=== PATIENT | female | born 2000 | race Caucasian/White ===

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

== ENCOUNTER 2021-09-20 06:48 | Inpatient (IN) | payer BC ==
[2021-09-20] MEDS ORDERED: Misoprostol 200 MCG Tab PO PRN (06:57)
[2021-09-20] MEDS ORDERED: Nalbuphine 10 MG/1 ML Vial IVPUSH PRN (06:57)
[2021-09-20] MEDS ORDERED: Sodium Chloride 0.9% 20 ML SDV IV PRN (06:57)
[2021-09-20] MEDS ORDERED: Sodium Chloride 0.9% 2.5 ML Syringe FLUSH PRN (06:57)
[2021-09-20] MEDS ORDERED: Carboprost Tromethamine 250 MCG/1 ML Amp IM PRN (06:57)
[2021-09-20] MEDS ORDERED: Methylergonovine 0.2 MG/1 ML Amp IM PRN ×2 (06:57→09:42)
[2021-09-20] MEDS ORDERED: Tranexamic Acid 1,000 MG in Sodium Chloride 0.9% 100 ML IV PRN (06:57)
[2021-09-20] MEDS ORDERED: Lidocaine 1% 50 ML MDV INJECT PRN (06:57)
[2021-09-20] MEDS ORDERED: Ondansetron 4 MG/2 ML SDV IVPUSH PRN ×4 (06:57→09:42)
[2021-09-20] MEDS ORDERED: Butorphanol 1 MG/ML SDV IVPUSH PRN (06:57)
[2021-09-20] MEDS ORDERED: Sodium Chloride 0.9% 10 ML Syringe FLUSH PRN (06:57)
[2021-09-20] MEDS ORDERED: Water For Irrigation,Sterile 1,000 ML Container IRR PRN (06:57)
[2021-09-20] MEDS: Lactated Ringers 1,000 ML IV SCH ×2 (06:57→08:25)
[2021-09-20] MEDS ORDERED: Oxytocin/0.9 % Sodium Chloride 30 UNIT/500 ML BAG IV SCH (07:00)
[2021-09-20] MEDS ORDERED: Terbutaline 1 MG/ML SDV SUBCUT ONE (07:30)
[2021-09-20] MEDS ORDERED: Ampicillin 2 GM in Sodium Chloride 0.9% 100 ML IV ONE (07:30)
[2021-09-20] MEDS ORDERED: Morphine 4 MG/ML VIAL IVPUSH PRN ×2 (07:34→09:17)
[2021-09-20] MEDS ORDERED: Metoclopramide 10 MG/2 ML SDV IVPUSH PRN ×2 (07:34→09:17)
[2021-09-20] MEDS ORDERED: Naloxone 0.4 MG/ML SDV IVPUSH PRN ×2 (07:34→09:17)
[2021-09-20] MEDS ORDERED: ePHEDrine 50 MG/ML SDV IVPUSH PRN (07:34)
[2021-09-20] MEDS ORDERED: HYDROmorphone 1 MG/ML Syringe IVPUSH PRN ×2 (07:34→09:17)
[2021-09-20] MEDS ORDERED: fentaNYL 100 MCG/2 ML SDV IVPUSH PRN ×2 (07:34→09:17)
[2021-09-20] MEDS ORDERED: Albuterol 0.083% 2.5 MG/3 ML Neb Soln NEB PRN ×2 (07:34→09:17)
--- NOTE | 2021-09-20 08:54 | PCM.LDHP ---
L&D History of Present Illness - General Date of Service: 09/20/21 Admit Problem/Dx: Patient Status Order with Admit Dx/Problem 09/20/21 06:58 Patient Status [ADT] Routine Admission Diagnosis/Problem Admission Diagnosis/Problem Source of Information: Patient ([id number]) History Limitations: Reports: No Limitations - History of Present Illness Introduction:: 20yo at 39w1d GA here for ECV and PLTCS if ECV unsuccessful. GBS positive, uncomplicated otherwise. - Related Data Allergies/Adverse Reactions: Allergies Allergy/AdvReac Type Severity Reaction Status Date / Time No Known Allergies Allergy Verified 09/20/21 07:52 Home Medications: Home Meds . 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: , Other (See Below) Other OB/BYN History: PCOS Neurological History: Reports: None Psychiatric History: Reports: Anxiety, Depression Endocrine/Metabolic History: Reports: Obesity/BMI 30+ Hematologic History: Reports: Anemia - Infectious Disease History Infectious Disease History: Reports: Novel Coronavirus - Past Surgical History HEENT Surgical History: Reports: Oral Surgery, Other (See Below) Other HEENT Surgeries/Procedures: [place] teeth removal GI Surgical History: Reports: None Endocrine Surgical History: Reports: None Social & Family History - Family History Family Medical History: No Pertinent Family History H&P Review of Systems - Review of Systems: Review Of Systems: See Below General: Reports: No Symptoms HEENT: Reports: No Symptoms Pulmonary: Reports: No Symptoms Cardiovascular: Reports: No Symptoms Gastrointestinal: Reports: No Symptoms Genitourinary: Reports: No Symptoms Musculoskeletal: Reports: No Symptoms Skin: Reports: No Symptoms Psychiatric: Reports: No Symptoms Neurological: Reports: No Symptoms L&D Exam - Exam Exam: See Below - Vital Signs Weight: 105.687 kg - Patient Data Lab Results Last 24 hrs: Laboratory Results - last 24 hr 09/20/21 09/20/21 09/20/21 Range/Units 07:10 07:10 07:16 WBC 7.87 (4.0-11.0) K/uL RBC 3.77 L (4.30-5.90) M/uL Hgb 11.4 L (12.0-16.0) g/dL Hct 32.3 L (36.0-46.0) % MCV 85.7 (80.0-98.0) fL MCH 30.2 (27.0-32.0) pg MCHC 35.3 (31.0-37.0) g/dL RDW Std Deviation 42.2 (28.0-62.0) fl RDW Coeff of Alfie 14 (11.0-15.0) % Plt Count 179 (150-400) K/uL MPV 9.90 (7.40-12.00) fL Nucleated RBC % 0.0 /100WBC Nucleated RBCs # 0 K/uL SARS-CoV-2 RNA (DIANE) NEGATIVE (NEGATIVE) Blood Type O POSITIVE Antibody Screen NEGATIVE Result Diagrams: 09/20/21 07:10 - Problem List (1) Term SNOMED Code(s): 16416762 ICD Code: Z34.90 - ENCNTR FOR SUPRVSN OF NORMAL , UNSP, UNSP TRIME STER Status: Acute Priority: High Current Visit: Yes (2) Breech presentation SNOMED Code(s): 9963091 ICD Code: O32.1XX0 - MATERNAL CARE FOR BREECH PRESENTATION, UNSP Status: Acute Priority: High Current Visit: Yes Problem List Initiated/Reviewed/Updated: Yes Orders Last 24hrs: Active Orders 24 hr Category Date Time Status Patient Status [ADT] Routine ADT 09/20/21 06:58 Active Blood Glucose Check, Bedside [RC] PRN Care 09/20/21 07:34 Active Heart Tones [RC] CONTINUOUS Care 09/20/21 06:58 Active Non Stress Test [RC] PER UNIT ROUTINE Care 09/20/21 06:58 Active May Shower [RC] ASDIRECTED Care 09/20/21 06:58 Active Notify Provider Vital Signs [RC] ASDIRECTED Care 09/20/21 07:34 Active Notify Provider [RC] PRN Care 09/20/21 06:58 Active Overnight Pulse Oximetry [RC] Click to Edit Care 09/20/21 07:34 Active Oxygen Therapy [RC] PRN Care 09/20/21 07:34 Active RT Aerosol Therapy [RC] ASDIRECTED Care 09/20/21 07:34 Active RT Aerosol Therapy [RC] ASDIRECTED Care 09/20/21 07:34 Active RT BiPAP/CPAP [RC] ASDIRECTED Care 09/20/21 07:34 Active Up ad Geovanna [RC] ASDIRECTED Care 09/20/21 06:58 Active Vaginal Exam [RC] PRN Care 09/20/21 06:58 Active Vital Signs [RC] PER UNIT ROUTINE Care 09/20/21 06:58 Active Vital Signs [RC] Q5M Care 09/20/21 07:34 Active OB Ltd 1 or More Fetus [US] Routine Exams 09/20/21 07:03 Ordered RPR (SYPHILIS SERO) W/ RFLX [REF] Routine Lab 09/20/21 07:10 Received Albuterol [Proventil Neb Soln] Med 09/20/21 07:34 Active 2.5 mg NEB ONETIME PRN Butorphanol [Stadol] Med 09/20/21 06:57 Active 1 mg IVPUSH Q1H PRN Carboprost Tromethamine [Hemabate DS] Med 09/20/21 06:57 Active 250 mcg IM ASDIRECTED PRN HYDROmorphone [Dilaudid] Med 09/20/21 07:34 Active 1 mg IVPUSH Q10M PRN Lactated Ringers [Ringers, Lactated] 1,000 ml Med 09/20/21 07:00 Active IV ASDIRECTED Lidocaine 1% [Xylocaine 1%] Med 09/20/21 06:57 Active 50 ml INJECT ONETIME PRN Methylergonovine [Methergine] Med 09/20/21 06:57 Active 0.2 mg IM ASDIRECTED PRN Metoclopramide [Reglan] Med 09/20/21 07:34 Active 10 mg IVPUSH ONETIME PRN Morphine Med 09/20/21 07:34 Active 2 mg IVPUSH Q10M PRN Nalbuphine [Nubain] Med 09/20/21 06:57 Active 10 mg IVPUSH Q1H PRN Naloxone [Narcan] Med 09/20/21 07:34 Active 0.1 mg IVPUSH ASDIRECTED PRN Ondansetron [Zofran] Med 09/20/21 07:34 Active 4 mg IVPUSH ONETIME PRN Ondansetron [Zofran] Med 09/20/21 06:57 Active 4 mg IVPUSH Q4H PRN Oxytocin/0.9 % Sodium Chloride [Oxytocin 30 Unit in NS Med 09/20/21 07:00 Active 0.9% 500 ML Premix] 30 unit in 500 ml IV TITRATE Sodium Chloride 0.9% [Normal Saline] Med 09/20/21 06:57 Active 10 ml IV ASDIRECTED PRN Sodium Chloride 0.9% [Saline Flush] Med 09/20/21 06:57 Active 10 ml FLUSH ASDIRECTED PRN Sodium Chloride 0.9% [Saline Flush] Med 09/20/21 06:57 Active 2.5 ml FLUSH ASDIRECTED PRN Tranexamic Acid [Cyklokapron] 1,000 mg Med 09/20/21 06:57 Active Sodium Chloride 0.9% [Normal Saline AdvBag] 100 ml IV ONETIME Water For Irrigation,Sterile [Sterile Water for Med 09/20/21 06:57 Active Irrigation] 1,000 ml IRR ASDIRECTED PRN droperidoL [Inapsine] Med 09/20/21 07:34 Active 0.625 mg IVPUSH ONETIME PRN ePHEDrine [ePHEDrine sulfate] Med 09/20/21 07:34 Active 10 mg IVPUSH Q5M PRN fentaNYL [Sublimaze] Med 09/20/21 07:34 Active 50 mcg IVPUSH Q5M PRN miSOPROStoL [Cytotec] Med 09/20/21 06:57 Active 200 mcg PO ONETIME PRN Scalp Electrode [WOMSER] Per Unit Routine Oth 09/20/21 06:58 Ordered Peripheral IV Insertion Adult [OM.PC] Routine Oth 09/20/21 06:58 Ordered Pulse Oximetry Continuous Monitoring [OM.PC] Routine Oth 09/20/21 07:34 Ordered Resuscitation Status Routine Resus Stat 09/20/21 06:57 Ordered Medication Orders Albuterol (Albuterol 0.083% 2.5 Mg/3 Ml Neb Soln) 2.5 mg NEB ONETIME PRN PRN Reason: Wheezing Butorphanol Tartrate (Butorphanol 1 Mg/Ml Sdv) 1 mg IVPUSH Q1H PRN PRN Reason: Pain (severe 7-10) Carboprost Tromethamine (Carboprost Tromethamine 250 Mcg/1 Ml Amp) 250 mcg IM ASDIRECTED PRN PRN Reason: Post Hemorrhage Droperidol (Droperidol 5 Mg/2 Ml Sdv) 0.625 mg IVPUSH ONETIME PRN PRN Reason: Nausea/Vomiting Ephedrine Sulfate (Ephedrine 50 Mg/Ml Sdv) 10 mg IVPUSH Q5M PRN PRN Reason: Hypotension Fentanyl (Fentanyl 100 Mcg/2 Ml Sdv) 50 mcg IVPUSH Q5M PRN PRN Reason: Pain (mild 1-3) Hydromorphone HCl (Hydromorphone 1 Mg/Ml Syringe) 1 mg IVPUSH Q10M PRN PRN Reason: Pain (moderate 4-6) Oxytocin/Sodium Chloride (Oxytocin 30 Unit In Ns 0.9% 500 Ml Premix) 30 unit in 500 mls @ 500 mls/hr IV TITRATE KARINE Tranexamic Acid 1,000 mg/ (Sodium Chloride) 110 mls @ 660 mls/hr IV ONETIME PRN PRN Reason: Bleeding Lactated Ringer's (Ringers, Lactated) 1,000 mls @ 150 mls/hr IV ASDIRECTED [facility] Admin: 09/20/21 08:25 Dose: 150 mls/hr Documented by: Infusion: 09/20/21 08:25 Dose: 150 mls/hr Documented by: Admin: 09/20/21 06:57 Dose: 150 mls/hr Documented by: JESSA Lidocaine HCl (Lidocaine 1% 50 Ml Mdv) 50 ml INJECT ONETIME PRN PRN Reason: Laceration repair Methylergonovine Maleate (Methylergonovine 0.2 Mg/1 Ml Amp) 0.2 mg IM ASDIRECTED PRN PRN Reason: Post Hemorrhage Metoclopramide HCl (Metoclopramide 10 Mg/2 Ml Sdv) 10 mg IVPUSH ONETIME PRN PRN Reason: Nausea/Vomiting Misoprostol (Misoprostol 200 Mcg Tab) 200 mcg PO ONETIME PRN PRN Reason: Post Hemorrhage Morphine Sulfate (Morphine 4 Mg/Ml Vial) 2 mg IVPUSH Q10M PRN PRN Reason: Pain (severe 7-10) Nalbuphine HCl (Nalbuphine 10 Mg/1 Ml Vial) 10 mg IVPUSH Q1H PRN PRN Reason: Pain (severe 7-10) Naloxone HCl (Naloxone 0.4 Mg/Ml Sdv) 0.1 mg IVPUSH ASDIRECTED PRN PRN Reason: Respiratory Depression Ondansetron HCl (Ondansetron 4 Mg/2 Ml Sdv) 4 mg IVPUSH Q4H PRN PRN Reason: Nausea/Vomiting Ondansetron HCl (Ondansetron 4 Mg/2 Ml Sdv) 4 mg IVPUSH ONETIME PRN PRN Reason: Nausea/Vomiting Sodium Chloride (Sodium Chloride 0.9% 10 Ml Syringe) 10 ml FLUSH ASDIRECTED PRN PRN Reason: Keep Vein Open Sodium Chloride (Sodium Chloride 0.9% 2.5 Ml Syringe) 2.5 ml FLUSH ASDIRECTED PRN PRN Reason: Keep Vein Open Sodium Chloride (Sodium Chloride 0.9% 20 Ml Sdv) 10 ml IV ASDIRECTED PRN PRN Reason: IV Use Sterile Water (Water For Irrigation,Sterile 1,000 Ml Container) 1,000 ml IRR ASDIRECTED PRN PRN Reason: delivery Assessment/Plan Comment:: 20yo at 39w1d GA admitted for PLTCS. ECV attempted and unsuccessful. Patient agreeable for . P: Orders placed. Consent signed.
[2021-09-20] MEDS ORDERED: Bupivacaine 0.5% 10 ML SDV ONE (08:55)
[2021-09-20] MEDS ORDERED: Oxytocin 10 Units/1 ML SDV ONE ×2 (08:56→08:57)
[2021-09-20] MEDS ORDERED: Morphine PF 10 MG/10 ML SDV ONE (08:56)
[2021-09-20] MEDS ORDERED: Ropivacaine 0.5% 5 MG/ML 30 ML SDV ONE (08:57)
[2021-09-20] MEDS ORDERED: Ondansetron 4 MG/2 ML SDV ONE ×2 (08:57)
[2021-09-20] MEDS ORDERED: fentaNYL 100 MCG/2 ML SDV ONE (09:05)
--- NOTE | 2021-09-20 09:13 | PCM.PREANE ---
Preanesthetic Assessment - Anesthesia/Transfusion/Family Hx Anesthesia History: Prior Anesthesia Without Reaction - Review of Systems General: No Symptoms Pulmonary: No Symptoms Cardiovascular: No Symptoms Gastrointestinal: No Symptoms Neurological: No Symptoms Other: Reports: None - Physical Assessment NPO Status Date: 09/20/21 NPO Status Time: 00:00 Height: 5 ft 4 in Weight: 233 lb ASA Class: 2 Mental Status: Alert & Oriented x3 Airway Class: Mallampati = 2 Dentition: Reports: Normal Dentition Thyro-Mental Finger Breadths: 3 Mouth Opening Finger Breadths: 3 ROM/Head Extension: Full Lungs: Clear to Auscultation, Normal Respiratory Effort Cardiovascular: Regular Rate, Regular Rhythm - Lab Values: Laboratory Last Values WBC 7.87 K/uL (4.0-11.0) 09/20/21 07:10 RBC 3.77 M/uL (4.30-5.90) L 09/20/21 07:10 Hgb 11.4 g/dL (12.0-16.0) L 09/20/21 07:10 Hct 32.3 % (36.0-46.0) L 09/20/21 07:10 MCV 85.7 fL (80.0-98.0) 09/20/21 07:10 MCH 30.2 pg (27.0-32.0) 09/20/21 07:10 MCHC 35.3 g/dL (31.0-37.0) 09/20/21 07:10 RDW Std Deviation 42.2 fl (28.0-62.0) 09/20/21 07:10 RDW Coeff of Alfie 14 % (11.0-15.0) 09/20/21 07:10 Plt Count 179 K/uL (150-400) 09/20/21 07:10 MPV 9.90 fL (7.40-12.00) 09/20/21 07:10 Nucleated RBC % 0.0 /100WBC 09/20/21 07:10 Nucleated RBCs # 0 K/uL 09/20/21 07:10 SARS-CoV-2 RNA (DIANE) NEGATIVE (NEGATIVE) 09/20/21 07:16 Blood Type O POSITIVE 09/20/21 07:10 Antibody Screen NEGATIVE 09/20/21 07:10 - Allergies Allergies/Adverse Reactions: Allergies Allergy/AdvReac Type Severity Reaction Status Date / Time No Known Allergies Allergy Verified 09/20/21 07:52 - Acknowledgements Anesthesia Type Planned: Epidural Pt an Appropriate Candidate for the Planned Anesthesia: Yes Alternatives and Risks of Anesthesia Discussed w Pt/Guardian: Yes Pt/Guardian Understands and Agrees with Anesthesia Plan: Yes PreAnesthesia Questionnaire Gastrointestinal History: Reports: GERD 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 [No Known Home Meds] 09/15/21 [History] - CURRENT (IN HOUSE) MEDS Current Meds: Current Medications Albuterol (Albuterol 0.083% 2.5 Mg/3 Ml Neb Soln) 2.5 mg NEB ONETIME PRN PRN Reason: Wheezing Butorphanol Tartrate (Butorphanol 1 Mg/Ml Sdv) 1 mg IVPUSH Q1H PRN PRN Reason: Pain (severe 7-10) Carboprost Tromethamine (Carboprost Tromethamine 250 Mcg/1 Ml Amp) 250 mcg IM ASDIRECTED PRN PRN Reason: Post Hemorrhage Droperidol (Droperidol 5 Mg/2 Ml Sdv) 0.625 mg IVPUSH ONETIME PRN PRN Reason: Nausea/Vomiting Ephedrine Sulfate (Ephedrine 50 Mg/Ml Sdv) 10 mg IVPUSH Q5M PRN PRN Reason: Hypotension Fentanyl (Fentanyl 100 Mcg/2 Ml Sdv) 50 mcg IVPUSH Q5M PRN PRN Reason: Pain (mild 1-3) Hydromorphone HCl (Hydromorphone 1 Mg/Ml Syringe) 1 mg IVPUSH Q10M PRN PRN Reason: Pain (moderate 4-6) Oxytocin/Sodium Chloride (Oxytocin 30 Unit In Ns 0.9% 500 Ml Premix) 30 unit in 500 mls @ 500 mls/hr IV TITRATE KARINE Tranexamic Acid 1,000 mg/ (Sodium Chloride) 110 mls @ 660 mls/hr IV ONETIME PRN PRN Reason: Bleeding Lactated Ringer's (Ringers, Lactated) 1,000 mls @ 150 mls/hr IV ASDIRECTED [facility] Last Admin: 09/20/21 08:25 Dose: 150 mls/hr Documented by: Lidocaine HCl (Lidocaine 1% 50 Ml Mdv) 50 ml INJECT ONETIME PRN PRN Reason: Laceration repair Methylergonovine Maleate (Methylergonovine 0.2 Mg/1 Ml Amp) 0.2 mg IM ASDIRECTED PRN PRN Reason: Post Hemorrhage Metoclopramide HCl (Metoclopramide 10 Mg/2 Ml Sdv) 10 mg IVPUSH ONETIME PRN PRN Reason: Nausea/Vomiting Misoprostol (Misoprostol 200 Mcg Tab) 200 mcg PO ONETIME PRN PRN Reason: Post Hemorrhage Morphine Sulfate (Morphine 4 Mg/Ml Vial) 2 mg IVPUSH Q10M PRN PRN Reason: Pain (severe 7-10) Nalbuphine HCl (Nalbuphine 10 Mg/1 Ml Vial) 10 mg IVPUSH Q1H PRN PRN Reason: Pain (severe 7-10) Naloxone HCl (Naloxone 0.4 Mg/Ml Sdv) 0.1 mg IVPUSH ASDIRECTED PRN PRN Reason: Respiratory Depression Ondansetron HCl (Ondansetron 4 Mg/2 Ml Sdv) 4 mg IVPUSH Q4H PRN PRN Reason: Nausea/Vomiting Ondansetron HCl (Ondansetron 4 Mg/2 Ml Sdv) 4 mg IVPUSH ONETIME PRN PRN Reason: Nausea/Vomiting Sodium Chloride (Sodium Chloride 0.9% 10 Ml Syringe) 10 ml FLUSH ASDIRECTED PRN PRN Reason: Keep Vein Open Sodium Chloride (Sodium Chloride 0.9% 2.5 Ml Syringe) 2.5 ml FLUSH ASDIRECTED PRN PRN Reason: Keep Vein Open Sodium Chloride (Sodium Chloride 0.9% 20 Ml Sdv) 10 ml IV ASDIRECTED PRN PRN Reason: IV Use Sterile Water (Water For Irrigation,Sterile 1,000 Ml Container) 1,000 ml IRR ASDIRECTED PRN PRN Reason: delivery Discontinued Medications Bupivacaine HCl (Bupivacaine 0.5% 10 Ml Sdv) Confirm Administered Dose 10 ml .ROUTE .STK-MED ONE Stop: 09/20/21 08:56 Fentanyl (Fentanyl 100 Mcg/2 Ml Sdv) Confirm Administered Dose 100 mcg .ROUTE .STK-MED ONE Stop: 09/20/21 09:06 Ampicillin Sodium 2 gm/ Sodium (Chloride) 100 mls @ 200 mls/hr IV ONETIME ONE Stop: 09/20/21 07:59 Last Admin: 09/20/21 07:27 Dose: 200 mls/hr Documented by: Miscellaneous Medication (Phenylephrine Hcl In 0.9% Nacl 1 Mg/10 Ml Syringe) Confirm Administered Dose 1 mg .ROUTE .STK-MED ONE Stop: 09/20/21 08:21 Miscellaneous Medication (Phenylephrine Hcl In 0.9% Nacl 1 Mg/10 Ml Syringe) Confirm Administered Dose 1 mg .ROUTE .STK-MED ONE Stop: 09/20/21 08:58 Morphine Sulfate (Morphine Pf 10 Mg/10 Ml Sdv) Confirm Administered Dose 10 mg .ROUTE .STK-MED ONE Stop: 09/20/21 08:57 Ondansetron HCl (Ondansetron 4 Mg/2 Ml Sdv) Confirm Administered Dose 4 mg .ROUTE .STK-MED ONE Stop: 09/20/21 08:58 Ondansetron HCl (Ondansetron 4 Mg/2 Ml Sdv) Confirm Administered Dose 4 mg .ROUTE .STK-MED ONE Stop: 09/20/21 08:58 Oxytocin (Oxytocin 10 Units/1 Ml Sdv) Confirm Administered Dose 10 unit .ROUTE .STK-MED ONE Stop: 09/20/21 08:57 Oxytocin (Oxytocin 10 Units/1 Ml Sdv) Confirm Administered Dose 30 unit .ROUTE .STK-MED ONE Stop: 09/20/21 08:58 Ropivacaine (Ropivacaine 0.5% 5 Mg/Ml 30 Ml Sdv) Confirm Administered Dose 30 ml .ROUTE .STK-MED ONE Stop: 09/20/21 08:58 Terbutaline Sulfate (Terbutaline 1 Mg/Ml Sdv) 0.25 mg SUBCUT ONETIME ONE Stop: 09/20/21 07:31 Last Admin: 09/20/21 07:46 Dose: 0.25 mg Documented by:
--- NOTE | 2021-09-20 09:14 | PCM.POSTAN ---
POST ANESTHESIA ASSESSMENT - MENTAL STATUS Mental Status: Alert, Oriented - RESPIRATORY Respiratory Status: Respiratory Rate WNL, Airway Patent, O2 Saturation Stable - CARDIOVASCULAR CV Status: Pulse Rate WNL, Blood Pressure Stable - GASTROINTESTINAL GI Status: No Symptoms - POST OP HYDRATION Hydration Status: Adequate & Stable
--- NOTE | 2021-09-20 09:16 | PCM.SN.2 ---
- Pre-Procedure Checklist Attending Provider Aware: Yes Chart Reviewed: Yes Consent Signed: Yes Labs Reviewed: Yes VS/FHR Reviewed: Yes Patient Identification Confirmation Method: Reports: ID Band Visual, Verbal Patient Pt an Appropriate Candidate for the Planned Anesthesia: Yes Alternatives and Risks of Anesthesia Discussed w Pt/Guardian: Yes - Procedure Procedure Start Date: 09/20/21 Procedure Start Time: 08:[address]: Reports: Blood Pressure, Heart Rate, SPO2 Functional IV: Yes Safety Measures: Reports: Patient Identified, Procedure Verified, Site Verified, Procedure Time Out Patient Position: Reports: Sitting Prep: Reports: Alcohol x3, Betadine x3 Local Anesthetic: Reports: Intradermal Wheal w Lidocaine 1% Regional Placement Level: Reports: L4-5 Needle: Reports: 17 g Touhy Approach: Reports: Midline Technique: Reports: MELVIN Glass Syringe Parasthesia: Reports: None Fluid Obtained: Reports: None Test Dose Medication: Reports: Lidocaine 1.5% w Epinephrine 1:200,000 Test Dose Response: Reports: Negative Loading Dose Time: 08:20 Loading Dose Medication: 10cc 0.5% Bupivicaine Loading Dose Patient Position: LESA Patient Position Post Placement: Reports: Supline/LESA Level Achieved: T-7 VS and FHR Monitored in Unit Post Placement: Yes Procedure End Date: 09/20/21 Procedure End Time: 08:25
[2021-09-20] MEDS ORDERED: Tranexamic Acid 1,000 MG in Sodium Chloride 0.9% 500 ML IV PRN (09:42)
[2021-09-20] MEDS ORDERED: Misoprostol 200 MCG Tab RECTAL PRN (09:42)
[2021-09-20] MEDS ORDERED: Bisacodyl 10 MG Supp RECTAL PRN (09:42)
[2021-09-20] MEDS ORDERED: Acetaminophen/oxyCODONE 325-5 MG Tab PO PRN (09:42)
[2021-09-20] MEDS ORDERED: Oxytocin 10 Units/1 ML SDV IM PRN (09:42)
[2021-09-20] MEDS ORDERED: diphenhydrAMINE 50 MG/ML SDV IVPUSH PRN (09:42)
[2021-09-20] MEDS ORDERED: Lidocaine 2% 100 MG/5 ML Syringe ONE (09:42)
[2021-09-20] MEDS ORDERED: Lanolin 100% Cream 7 GM Tube TOP PRN (09:42)
[2021-09-20] MEDS ORDERED: Oxytocin/Lactated Ringers 30 UNIT/500 ML BAG IV SCH (09:45)
[2021-09-20] MEDS ORDERED: Lactated Ringers 1,000 ML IV SCH (09:45)
--- NOTE | 2021-09-20 09:46 | US ---
Indication: Numbness sonography to assess fluid volumes and presentation. Technique: Sonography of the gravid uterus was performed but limited to the factors and structures discussed below Comparison: Limited portions of in August 14, 2021 exam Findings: There is a single living intrauterine that is currently breech. The placenta is left lateral. There is no previa. The VINICIO is 11.7 centimeters which is normal. The single deepest pocket is 4.18 centimeters. heart rate is 129 beats per minute which is normal. According to the eeg technician notes, external version was attempted and the final pictures still show the presentation to be breech. Impression: 1. Single living intrauterine that is breach. Normal fluid ones. No placenta previa. Normal heart rate. 2. By report, external version was attempted. The final images show the fetus to still be in breech position Dictated by Von Berry MD @ 09/20/2021 9:44:53 AM (Electronically Signed)
[2021-09-20] MEDS: Ketorolac 30 MG/ML SDV IVPUSH SCH ×3 (10:07→22:22)
--- NOTE | 2021-09-20 10:15 | PCM.SN.2 ---
- Free Text/Narrative Note: Anesthesia Start: 957 Anesthesia Stop: 1003 Following c/s a block time out was performed. Using US guidance and a 20g echogenic 6 inch stimuplex needle, 15 cc of 0.5% Naropin was injected per side in 5cc increments. Patient tolerated the procedure well. No complications. Travis Mas MD
--- NOTE | 2021-09-20 13:30 | PCM48HPAN ---
Post Anesthesia Note - EVALUATION WITHIN 48HRS OF ANESTHETIC Vital Signs in Normal Range: Yes Patient Participated in Evaluation: Yes Respiratory Function Stable: Yes Airway Patent: Yes Cardiovascular Function Stable: Yes Hydration Status Stable: Yes Pain Control Satisfactory: Yes Nausea and Vomiting Control Satisfactory: Yes Mental Status Recovered: Yes
--- NOTE | 2021-09-20 19:00 | OR ---
SURGEON: Dacia Yanes MD DATE OF PROCEDURE: 09/20/2021 INDICATION FOR SURGERY: Term , breech presentation. PREOPERATIVE DIAGNOSES: Term , breech presentation. POSTOPERATIVE DIAGNOSES: Term , breech presentation, live . OPERATION: Primary low-transverse . PRIMARY SURGEON: Mahsa, Dacia Yanes MD and Panfilo Gutiérrez MD. SCIENTIFIC PUBLICATIONS EDITOR: None. ANESTHESIA: Spinal. ANESTHESIOLOGIST: Travis Mas. INTRAOPERATIVE FLUID REPLACEMENT: 1200 mL. ESTIMATED BLOOD LOSS: 400 mL. URINE OUTPUT: 150 mL. DRAIN AND PACK: Javier catheter draining clear urine. SPECIMEN: None. DELIVERY DETAILS: Live , female, weight 6 pounds 9 ounces. PLACENTA DELIVERY METHOD: Spontaneous. MATERNAL DELIVERY COMPLICATIONS: None. COMPLICATIONS: None. TECHNIQUE: The patient was first admitted for ECV. ECV attempted under epidural anesthesia, but unsuccessful. The patient was consented for a primary low- transverse . The patient was then taken to the operating room. She was transferred to the operating table and placed in a dorsal supine position with a leftward tilt. After adequate anesthesia was confirmed, she was prepped and draped in the usual sterile fashion. A time-out was completed. With IV fluid running and Javier catheter draining, a Pfannenstiel skin incision was made. The incision was carried down with the Bovie cautery through the subcutaneous tissue to the underlying rectus fascia and the fascia was incised in the midline and extended laterally. The underlying rectus muscle was dissected off and then in the midline and parietal peritoneum was opened. A self-retaining retractor was placed and the lower uterine segment was identified. A bladder flap was made and the lower uterine segment was incised in a transverse fashion. The incision was extended laterally with cephalocaudal traction. The infant's buttock was delivered followed by the reminder of the . The head was delivered last. The cord was clamped and cut and infant was then handed off to the pediatric staff. Blood was collected for possible cord gases. The placenta was delivered spontaneously. The uterus was then cleared of all clots and debris and the incision was reapproximated in a running locked stitch fashion utilizing 0 Vicryl. A second running stitch imbricating the first layer was performed with the same 0 Vicryl. Hemostasis was excellent. The self-retaining retractor was removed and the peritoneum was closed with a running stitch fashion utilizing 3-0 Vicryl. The rectus fascia was reapproximated with a PDS in a running stitch fashion. Hemostasis was also assured. The skin was then closed with a 4-0 Monocryl in a subcuticular fashion. All sponges, needles, and instrument counts were correct per the OR nursing staff. The patient was taken to recovery room in a stable condition. Prior to this surgery, patient had received 2 g of ampicillin. ASCENCION RILEY /[id number]
[2021-09-20] MEDS: Docusate Sodium 100 MG Cap PO SCH (21:37)
[2021-09-21] MEDS: Ketorolac 30 MG/ML SDV IVPUSH SCH ×2 (04:27→10:10)
[2021-09-21] MEDS: Docusate Sodium 100 MG Cap PO SCH ×2 (10:10→21:35)
[2021-09-21] MEDS ORDERED: Ibuprofen 800 MG Tab PO PRN (16:00)
--- NOTE | 2021-09-21 17:32 | PCM.PNPP ---
- General Info Date of Service: 09/21/21 Subjective Update: Mom and baby are doing well. Patient reports light vaginal bleeding. She has tolerated PO intake without nausea or vomiting. She has passed gas. Javier is out and she is voiding without issues. SHe is ambulating with dizziness/lightheadedness. Functional Status: Reports: Pain Controlled - Review of Systems General: Reports: No Symptoms HEENT: Reports: No Symptoms Pulmonary: Reports: No Symptoms Cardiovascular: Reports: No Symptoms Gastrointestinal: Reports: No Symptoms Genitourinary: Reports: No Symptoms Musculoskeletal: Reports: No Symptoms Skin: Reports: No Symptoms Neurological: Reports: No Symptoms Psychiatric: Reports: No Symptoms - General Info Date of Service: 09/21/21 - Patient Data Vital Signs - Most Recent: Last Vital Signs Temp 97.5 F 09/21/21 16:10 Pulse 84 09/21/21 16:10 Resp 17 09/21/21 16:10 BP 120/57 L 09/21/21 16:10 Pulse Ox 94 L 09/21/21 16:10 Weight - Most Recent: 105.687 kg I&O - Last 24 Hours: Intake & Output 09/21/21 09/21/21 09/21/21 06:59 14:59 22:59 Output Total 1999 Balance -1999 Lab Results - Last 24 Hours: Laboratory Results - last 24 hr 09/20/21 09/21/21 Range/Units 07:10 06:18 Hgb 10.5 L (12.0-16.0) g/dL Hct 29.9 L (36.0-46.0) % RPR Non-Reac (Non-Reac) Med Orders - Current: Current Medications Albuterol (Albuterol 0.083% 2.5 Mg/3 Ml Neb Soln) 2.5 mg NEB ONETIME PRN PRN Reason: Wheezing Albuterol (Albuterol 0.083% 2.5 Mg/3 Ml Neb Soln) 2.5 mg NEB ONETIME PRN PRN Reason: Wheezing Bisacodyl (Bisacodyl 10 Mg Supp) 10 mg RECTAL ONETIME PRN PRN Reason: Constipation Butorphanol Tartrate (Butorphanol 1 Mg/Ml Sdv) 1 mg IVPUSH Q1H PRN PRN Reason: Pain (severe 7-10) Carboprost Tromethamine (Carboprost Tromethamine 250 Mcg/1 Ml Amp) 250 mcg IM ASDIRECTED PRN PRN Reason: Post Hemorrhage Diphenhydramine HCl (Diphenhydramine 50 Mg/Ml Sdv) 25 mg IVPUSH Q6H PRN PRN Reason: Itching or Nausea Docusate Sodium (Docusate Sodium 100 Mg Cap) 100 mg PO BID [facility] Last Admin: 09/21/21 10:10 Dose: 100 mg Documented by: Droperidol (Droperidol 5 Mg/2 Ml Sdv) 0.625 mg IVPUSH ONETIME PRN PRN Reason: Nausea/Vomiting Droperidol (Droperidol 5 Mg/2 Ml Sdv) 0.625 mg IVPUSH ONETIME PRN PRN Reason: Nausea/Vomiting Emollient Ointment (Lanolin 100% Cream 7 Gm Tube) 0 gm TOP ASDIRECTED PRN PRN Reason: Sore Nipples Last Admin: 09/20/21 16:28 Dose: 1 tube Documented by: Ephedrine Sulfate (Ephedrine 50 Mg/Ml Sdv) 10 mg IVPUSH Q5M PRN PRN Reason: Hypotension Fentanyl (Fentanyl 100 Mcg/2 Ml Sdv) 50 mcg IVPUSH Q5M PRN PRN Reason: Pain (mild 1-3) Fentanyl (Fentanyl 100 Mcg/2 Ml Sdv) 50 mcg IVPUSH Q5M PRN PRN Reason: Pain (mild 1-3) Hydromorphone HCl (Hydromorphone 1 Mg/Ml Syringe) 1 mg IVPUSH Q10M PRN PRN Reason: Pain (moderate 4-6) Hydromorphone HCl (Hydromorphone 1 Mg/Ml Syringe) 1 mg IVPUSH Q10M PRN PRN Reason: Pain (moderate 4-6) Oxytocin/Sodium Chloride (Oxytocin 30 Unit In Ns 0.9% 500 Ml Premix) 30 unit in 500 mls @ 500 mls/hr IV TITRATE [facility] Tranexamic Acid 1,000 mg/ (Sodium Chloride) 110 mls @ 660 mls/hr IV ONETIME PRN PRN Reason: Bleeding Lactated Ringer's (Ringers, Lactated) 1,000 mls @ 150 mls/hr IV ASDIRECTED [facility] Last Admin: 09/20/21 08:25 Dose: 150 mls/hr Documented by: Lactated Ringer's (Ringers, Lactated) 1,000 mls @ 125 mls/hr IV ASDIRECTED [facility] Last Admin: 09/20/21 13:12 Dose: 125 mls/hr Documented by: Oxytocin/Lactated Ringer's (Pitocin In Lr 30 Units/500 Ml) 30 unit in 500 mls @ 2 mls/hr IV TITRATE [facility]; Protocol Tranexamic Acid 1,000 mg/ (Sodium Chloride) 510 mls @ 3,060 mls/hr IV ONETIME PRN PRN Reason: Bleeding Ibuprofen (Ibuprofen 800 Mg Tab) 800 mg PO Q8H PRN PRN Reason: Cramping Lidocaine HCl (Lidocaine 1% 50 Ml Mdv) 50 ml INJECT ONETIME PRN PRN Reason: Laceration repair Methylergonovine Maleate (Methylergonovine 0.2 Mg/1 Ml Amp) 0.2 mg IM ASDIRECTED PRN PRN Reason: Post Hemorrhage Methylergonovine Maleate (Methylergonovine 0.2 Mg/1 Ml Amp) 0.2 mg IM ONETIME PRN PRN Reason: Excessive Vaginal Bleeding Metoclopramide HCl (Metoclopramide 10 Mg/2 Ml Sdv) 10 mg IVPUSH ONETIME PRN PRN Reason: Nausea/Vomiting Metoclopramide HCl (Metoclopramide 10 Mg/2 Ml Sdv) 10 mg IVPUSH ONETIME PRN PRN Reason: Nausea/Vomiting Misoprostol (Misoprostol 200 Mcg Tab) 200 mcg PO ONETIME PRN PRN Reason: Post Hemorrhage Misoprostol (Misoprostol 200 Mcg Tab) 1,000 mcg RECTAL ONETIME PRN PRN Reason: excessive bleeding Morphine Sulfate (Morphine 4 Mg/Ml Vial) 2 mg IVPUSH Q10M PRN PRN Reason: Pain (severe 7-10) Morphine Sulfate (Morphine 4 Mg/Ml Vial) 2 mg IVPUSH Q10M PRN PRN Reason: Pain (severe 7-10) Nalbuphine HCl (Nalbuphine 10 Mg/1 Ml Vial) 10 mg IVPUSH Q1H PRN PRN Reason: Pain (severe 7-10) Naloxone HCl (Naloxone 0.4 Mg/Ml Sdv) 0.1 mg IVPUSH ASDIRECTED PRN PRN Reason: Respiratory Depression Naloxone HCl (Naloxone 0.4 Mg/Ml Sdv) 0.1 mg IVPUSH ASDIRECTED PRN PRN Reason: Respiratory Depression Ondansetron HCl (Ondansetron 4 Mg/2 Ml Sdv) 4 mg IVPUSH Q4H PRN PRN Reason: Nausea/Vomiting Last Admin: 09/20/21 16:28 Dose: 4 mg Documented by: Ondansetron HCl (Ondansetron 4 Mg/2 Ml Sdv) 4 mg IVPUSH ONETIME PRN PRN Reason: Nausea/Vomiting Ondansetron HCl (Ondansetron 4 Mg/2 Ml Sdv) 4 mg IVPUSH ONETIME PRN PRN Reason: Nausea/Vomiting Ondansetron HCl (Ondansetron 4 Mg/2 Ml Sdv) 4 mg IVPUSH Q4H PRN PRN Reason: Nausea/Vomiting Oxycodone/Acetaminophen (Acetaminophen/Oxycodone 325-5 Mg Tab) 1 tab PO Q4H PRN PRN Reason: Pain (severe 7-10) Oxycodone/Acetaminophen (Acetaminophen/Oxycodone 325-5 Mg Tab) 2 tab PO Q4H PRN PRN Reason: Pain (severe 7-10) Oxytocin (Oxytocin 10 Units/1 Ml Sdv) 10 unit IM ASDIRECTED PRN PRN Reason: Excessive Vaginal Bleeding Sodium Chloride (Sodium Chloride 0.9% 10 Ml Syringe) 10 ml FLUSH ASDIRECTED PRN PRN Reason: Keep Vein Open Sodium Chloride (Sodium Chloride 0.9% 2.5 Ml Syringe) 2.5 ml FLUSH ASDIRECTED PRN PRN Reason: Keep Vein Open Sodium Chloride (Sodium Chloride 0.9% 20 Ml Sdv) 10 ml IV ASDIRECTED PRN PRN Reason: IV Use Sterile Water (Water For Irrigation,Sterile 1,000 Ml Container) 1,000 ml IRR ASDIRECTED PRN PRN Reason: delivery Discontinued Medications Bupivacaine HCl (Bupivacaine 0.5% 10 Ml Sdv) Confirm Administered Dose 10 ml .ROUTE .STK-MED ONE Stop: 09/20/21 08:56 Droperidol (Droperidol 5 Mg/2 Ml Sdv) Confirm Administered Dose 5 mg .ROUTE .STK-MED ONE Stop: 09/20/21 09:41 Fentanyl (Fentanyl 100 Mcg/2 Ml Sdv) Confirm Administered Dose 100 mcg .ROUTE .STK-MED ONE Stop: 09/20/21 09:06 Ampicillin Sodium 2 gm/ Sodium (Chloride) 100 mls @ 200 mls/hr IV ONETIME ONE Stop: 09/20/21 07:59 Last Admin: 09/20/21 07:27 Dose: 200 mls/hr Documented by: Ketorolac Tromethamine (Ketorolac 30 Mg/Ml Sdv) 30 mg IVPUSH Q6H [facility] Stop: 09/21/21 09:46 Last Admin: 09/21/21 10:10 Dose: 30 mg Documented by: Lidocaine HCl (Lidocaine 2% 100 Mg/5 Ml Syringe) Confirm Administered Dose 100 mg .ROUTE .STK-MED ONE Stop: 09/20/21 09:43 Miscellaneous Medication (Phenylephrine Hcl In 0.9% Nacl 1 Mg/10 Ml Syringe) Confirm Administered Dose 1 mg .ROUTE .STK-MED ONE Stop: 09/20/21 08:21 Miscellaneous Medication (Phenylephrine Hcl In 0.9% Nacl 1 Mg/10 Ml Syringe) Confirm Administered Dose 1 mg .ROUTE .STK-MED ONE Stop: 09/20/21 08:58 Morphine Sulfate (Morphine Pf 10 Mg/10 Ml Sdv) Confirm Administered Dose 10 mg .ROUTE .STK-MED ONE Stop: 09/20/21 08:57 Ondansetron HCl (Ondansetron 4 Mg/2 Ml Sdv) Confirm Administered Dose 4 mg .ROUTE .STK-MED ONE Stop: 09/20/21 08:58 Ondansetron HCl (Ondansetron 4 Mg/2 Ml Sdv) Confirm Administered Dose 4 mg .ROUTE .STK-MED ONE Stop: 09/20/21 08:58 Oxytocin (Oxytocin 10 Units/1 Ml Sdv) Confirm Administered Dose 10 unit .ROUTE .STK-MED ONE Stop: 09/20/21 08:57 Oxytocin (Oxytocin 10 Units/1 Ml Sdv) Confirm Administered Dose 30 unit .ROUTE .STK-MED ONE Stop: 09/20/21 08:58 Ropivacaine (Ropivacaine 0.5% 5 Mg/Ml 30 Ml Sdv) Confirm Administered Dose 30 ml .ROUTE .STK-MED ONE Stop: 09/20/21 08:58 Terbutaline Sulfate (Terbutaline 1 Mg/Ml Sdv) 0.25 mg SUBCUT ONETIME ONE Stop: 09/20/21 07:31 Last Admin: 09/20/21 07:46 Dose: 0.25 mg Documented by: - Infant Interaction Disposition, : in Room with Family Support Person: - Recovery Exam Fundal Tone: Firm Fundal Level: 2 Fingerbreadths Below Umbilicus Fundal Placement: Midline Lochia Amount: Scant Lochia Color: Rubra/Red Perineum Description: Intact, Minimal Bruising/Swelling Episiotomy/Laceration: None Bladder Status: Voiding Urinary Elimination: Voided Other Urinary Elimination, : due to void - Exam General: Alert, Oriented Lungs: Normal Respiratory Effort GI/Abdominal Exam: Soft, Non-Tender Psy/Mental Status: Normal Affect, Normal Mood - Problem List & Annotations (1) Term SNOMED Code(s): 30184423 Code(s): Z34.90 - ENCNTR FOR SUPRVSN OF NORMAL , UNSP, UNSP TRIMESTER Status: Acute Priority: High Current Visit: Yes (2) Breech presentation SNOMED Code(s): 2512613 Code(s): O32.1XX0 - MATERNAL CARE FOR BREECH PRESENTATION, UNSP Status: Acute Priority: High Current Visit: Yes - Problem List Review Problem List Initiated/Reviewed/Updated: Yes - My Orders Last 24 Hours: My Active Orders 09/20/21 21:00 Docusate Sodium [Colace] 100 mg PO BID 09/21/21 16:00 Ibuprofen [Motrin] 800 mg PO Q8H PRN - Plan Plan:: 20yo G1 now P1 s/p PLTCS at 39w1d GA, for breech presentation, after unsuccessful attempt at ECV P: Routine care
[2021-09-21] MEDS: Acetaminophen/oxyCODONE 325-5 MG Tab PO PRN ×2 (18:52→21:35)
--- NOTE | 2021-09-22 08:07 | PCM.PNPP ---
- General Info Date of Service: 09/22/21 Subjective Update: Patient doing well. Ambulating and voiding without difficulty. Functional Status: Reports: Pain Controlled, Tolerating Diet, Ambulating, Urinating - Review of Systems General: Reports: No Symptoms HEENT: Reports: No Symptoms Pulmonary: Reports: No Symptoms Cardiovascular: Reports: No Symptoms Gastrointestinal: Reports: No Symptoms Genitourinary: Reports: No Symptoms Musculoskeletal: Reports: No Symptoms Skin: Reports: No Symptoms Neurological: Reports: No Symptoms Psychiatric: Reports: No Symptoms - Patient Data Vital Signs - Most Recent: Last Vital Signs Temp 36.6 C 09/21/21 23:43 Pulse 85 09/21/21 23:43 Resp 18 09/21/21 23:43 BP 125/65 09/21/21 23:43 Pulse Ox 96 09/21/21 23:43 Weight - Most Recent: 105.687 kg Lab Results - Last 24 Hours: Laboratory Results - last 24 hr 09/20/21 Range/Units 07:10 RPR Non-Reac (Non-Reac) Med Orders - Current: Current Medications Albuterol (Albuterol 0.083% 2.5 Mg/3 Ml Neb Soln) 2.5 mg NEB ONETIME PRN PRN Reason: Wheezing Albuterol (Albuterol 0.083% 2.5 Mg/3 Ml Neb Soln) 2.5 mg NEB ONETIME PRN PRN Reason: Wheezing Bisacodyl (Bisacodyl 10 Mg Supp) 10 mg RECTAL ONETIME PRN PRN Reason: Constipation Butorphanol Tartrate (Butorphanol 1 Mg/Ml Sdv) 1 mg IVPUSH Q1H PRN PRN Reason: Pain (severe 7-10) Carboprost Tromethamine (Carboprost Tromethamine 250 Mcg/1 Ml Amp) 250 mcg IM ASDIRECTED PRN PRN Reason: Post Hemorrhage Diphenhydramine HCl (Diphenhydramine 50 Mg/Ml Sdv) 25 mg IVPUSH Q6H PRN PRN Reason: Itching or Nausea Docusate Sodium (Docusate Sodium 100 Mg Cap) 100 mg PO BID [facility] Last Admin: 09/21/21 21:35 Dose: 100 mg Documented by: Droperidol (Droperidol 5 Mg/2 Ml Sdv) 0.625 mg IVPUSH ONETIME PRN PRN Reason: Nausea/Vomiting Droperidol (Droperidol 5 Mg/2 Ml Sdv) 0.625 mg IVPUSH ONETIME PRN PRN Reason: Nausea/Vomiting Emollient Ointment (Lanolin 100% Cream 7 Gm Tube) 0 gm TOP ASDIRECTED PRN PRN Reason: Sore Nipples Last Admin: 09/20/21 16:28 Dose: 1 tube Documented by: Ephedrine Sulfate (Ephedrine 50 Mg/Ml Sdv) 10 mg IVPUSH Q5M PRN PRN Reason: Hypotension Fentanyl (Fentanyl 100 Mcg/2 Ml Sdv) 50 mcg IVPUSH Q5M PRN PRN Reason: Pain (mild 1-3) Fentanyl (Fentanyl 100 Mcg/2 Ml Sdv) 50 mcg IVPUSH Q5M PRN PRN Reason: Pain (mild 1-3) Hydromorphone HCl (Hydromorphone 1 Mg/Ml Syringe) 1 mg IVPUSH Q10M PRN PRN Reason: Pain (moderate 4-6) Hydromorphone HCl (Hydromorphone 1 Mg/Ml Syringe) 1 mg IVPUSH Q10M PRN PRN Reason: Pain (moderate 4-6) Oxytocin/Sodium Chloride (Oxytocin 30 Unit In Ns 0.9% 500 Ml Premix) 30 unit in 500 mls @ 500 mls/hr IV TITRATE [facility] Tranexamic Acid 1,000 mg/ (Sodium Chloride) 110 mls @ 660 mls/hr IV ONETIME PRN PRN Reason: Bleeding Lactated Ringer's (Ringers, Lactated) 1,000 mls @ 150 mls/hr IV ASDIRECTED [facility] Last Admin: 09/20/21 08:25 Dose: 150 mls/hr Documented by: Lactated Ringer's (Ringers, Lactated) 1,000 mls @ 125 mls/hr IV ASDIRECTED [facility] Last Admin: 09/20/21 13:12 Dose: 125 mls/hr Documented by: Oxytocin/Lactated Ringer's (Pitocin In Lr 30 Units/500 Ml) 30 unit in 500 mls @ 2 mls/hr IV TITRATE [facility]; Protocol Tranexamic Acid 1,000 mg/ (Sodium Chloride) 510 mls @ 3,060 mls/hr IV ONETIME PRN PRN Reason: Bleeding Ibuprofen (Ibuprofen 800 Mg Tab) 800 mg PO Q8H PRN PRN Reason: Cramping Lidocaine HCl (Lidocaine 1% 50 Ml Mdv) 50 ml INJECT ONETIME PRN PRN Reason: Laceration repair Methylergonovine Maleate (Methylergonovine 0.2 Mg/1 Ml Amp) 0.2 mg IM ASDIRECTED PRN PRN Reason: Post Hemorrhage Methylergonovine Maleate (Methylergonovine 0.2 Mg/1 Ml Amp) 0.2 mg IM ONETIME PRN PRN Reason: Excessive Vaginal Bleeding Metoclopramide HCl (Metoclopramide 10 Mg/2 Ml Sdv) 10 mg IVPUSH ONETIME PRN PRN Reason: Nausea/Vomiting Metoclopramide HCl (Metoclopramide 10 Mg/2 Ml Sdv) 10 mg IVPUSH ONETIME PRN PRN Reason: Nausea/Vomiting Misoprostol (Misoprostol 200 Mcg Tab) 200 mcg PO ONETIME PRN PRN Reason: Post Hemorrhage Misoprostol (Misoprostol 200 Mcg Tab) 1,000 mcg RECTAL ONETIME PRN PRN Reason: excessive bleeding Morphine Sulfate (Morphine 4 Mg/Ml Vial) 2 mg IVPUSH Q10M PRN PRN Reason: Pain (severe 7-10) Morphine Sulfate (Morphine 4 Mg/Ml Vial) 2 mg IVPUSH Q10M PRN PRN Reason: Pain (severe 7-10) Nalbuphine HCl (Nalbuphine 10 Mg/1 Ml Vial) 10 mg IVPUSH Q1H PRN PRN Reason: Pain (severe 7-10) Naloxone HCl (Naloxone 0.4 Mg/Ml Sdv) 0.1 mg IVPUSH ASDIRECTED PRN PRN Reason: Respiratory Depression Naloxone HCl (Naloxone 0.4 Mg/Ml Sdv) 0.1 mg IVPUSH ASDIRECTED PRN PRN Reason: Respiratory Depression Ondansetron HCl (Ondansetron 4 Mg/2 Ml Sdv) 4 mg IVPUSH Q4H PRN PRN Reason: Nausea/Vomiting Last Admin: 09/20/21 16:28 Dose: 4 mg Documented by: Ondansetron HCl (Ondansetron 4 Mg/2 Ml Sdv) 4 mg IVPUSH ONETIME PRN PRN Reason: Nausea/Vomiting Ondansetron HCl (Ondansetron 4 Mg/2 Ml Sdv) 4 mg IVPUSH ONETIME PRN PRN Reason: Nausea/Vomiting Ondansetron HCl (Ondansetron 4 Mg/2 Ml Sdv) 4 mg IVPUSH Q4H PRN PRN Reason: Nausea/Vomiting Oxycodone/Acetaminophen (Acetaminophen/Oxycodone 325-5 Mg Tab) 1 tab PO Q4H PRN PRN Reason: Pain (severe 7-10) Last Admin: 09/21/21 21:35 Dose: 1 tab Documented by: Oxycodone/Acetaminophen (Acetaminophen/Oxycodone 325-5 Mg Tab) 2 tab PO Q4H PRN PRN Reason: Pain (severe 7-10) Last Admin: 09/22/21 05:20 Dose: 2 tab Documented by: Oxytocin (Oxytocin 10 Units/1 Ml Sdv) 10 unit IM ASDIRECTED PRN PRN Reason: Excessive Vaginal Bleeding Sodium Chloride (Sodium Chloride 0.9% 10 Ml Syringe) 10 ml FLUSH ASDIRECTED PRN PRN Reason: Keep Vein Open Sodium Chloride (Sodium Chloride 0.9% 2.5 Ml Syringe) 2.5 ml FLUSH ASDIRECTED PRN PRN Reason: Keep Vein Open Sodium Chloride (Sodium Chloride 0.9% 20 Ml Sdv) 10 ml IV ASDIRECTED PRN PRN Reason: IV Use Sterile Water (Water For Irrigation,Sterile 1,000 Ml Container) 1,000 ml IRR ASDIRECTED PRN PRN Reason: delivery Discontinued Medications Bupivacaine HCl (Bupivacaine 0.5% 10 Ml Sdv) Confirm Administered Dose 10 ml .ROUTE .STK-MED ONE Stop: 09/20/21 08:56 Droperidol (Droperidol 5 Mg/2 Ml Sdv) Confirm Administered Dose 5 mg .ROUTE .STK-MED ONE Stop: 09/20/21 09:41 Fentanyl (Fentanyl 100 Mcg/2 Ml Sdv) Confirm Administered Dose 100 mcg .ROUTE .STK-MED ONE Stop: 09/20/21 09:06 Ampicillin Sodium 2 gm/ Sodium (Chloride) 100 mls @ 200 mls/hr IV ONETIME ONE Stop: 09/20/21 07:59 Last Admin: 09/20/21 07:27 Dose: 200 mls/hr Documented by: Ketorolac Tromethamine (Ketorolac 30 Mg/Ml Sdv) 30 mg IVPUSH Q6H [facility] Stop: 09/21/21 09:46 Last Admin: 09/21/21 10:10 Dose: 30 mg Documented by: Lidocaine HCl (Lidocaine 2% 100 Mg/5 Ml Syringe) Confirm Administered Dose 100 mg .ROUTE .STK-MED ONE Stop: 09/20/21 09:43 Miscellaneous Medication (Phenylephrine Hcl In 0.9% Nacl 1 Mg/10 Ml Syringe) Confirm Administered Dose 1 mg .ROUTE .STK-MED ONE Stop: 09/20/21 08:21 Miscellaneous Medication (Phenylephrine Hcl In 0.9% Nacl 1 Mg/10 Ml Syringe) Confirm Administered Dose 1 mg .ROUTE .STK-MED ONE Stop: 09/20/21 08:58 Morphine Sulfate (Morphine Pf 10 Mg/10 Ml Sdv) Confirm Administered Dose 10 mg .ROUTE .STK-MED ONE Stop: 09/20/21 08:57 Ondansetron HCl (Ondansetron 4 Mg/2 Ml Sdv) Confirm Administered Dose 4 mg .ROUTE .STK-MED ONE Stop: 09/20/21 08:58 Ondansetron HCl (Ondansetron 4 Mg/2 Ml Sdv) Confirm Administered Dose 4 mg .ROUTE .STK-MED ONE Stop: 09/20/21 08:58 Oxytocin (Oxytocin 10 Units/1 Ml Sdv) Confirm Administered Dose 10 unit .ROUTE .STK-MED ONE Stop: 09/20/21 08:57 Oxytocin (Oxytocin 10 Units/1 Ml Sdv) Confirm Administered Dose 30 unit .ROUTE .STK-MED ONE Stop: 09/20/21 08:58 Ropivacaine (Ropivacaine 0.5% 5 Mg/Ml 30 Ml Sdv) Confirm Administered Dose 30 ml .ROUTE .STK-MED ONE Stop: 09/20/21 08:58 Terbutaline Sulfate (Terbutaline 1 Mg/Ml Sdv) 0.25 mg SUBCUT ONETIME ONE Stop: 09/20/21 07:31 Last Admin: 09/20/21 07:46 Dose: 0.25 mg Documented by: - Infant Interaction Disposition, : [place] in Room with Family Interaction: Holding Feeding: Bottle Fed Infant, Breastfed ; Nursed Well Support Person: - Recovery Exam Fundal Tone: Firm Fundal Level: 2 Fingerbreadths Below Umbilicus Fundal Placement: Midline Lochia Amount: Scant Lochia Color: Rubra/Red Perineum Description: Intact, Minimal Bruising/Swelling Episiotomy/Laceration: None Bladder Status: Voiding Urinary Elimination: Voided Other Urinary Elimination, : due to void - Exam General: Alert, Oriented Neck: Supple Lungs: Normal Respiratory Effort GI/Abdominal Exam: Soft, Non-Tender, No Distention Extremities: Non-Tender, No Pedal Edema Skin: Warm, Dry, Intact Wound/Incisions: Dressing Dry and Intact Neurological: No New Focal Deficit Psy/Mental Status: Alert, Normal Affect, Normal Mood - Problem List & Annotations (1) S/P primary low transverse SNOMED Code(s): 589968129, 75141454, 815738206, 232789979, 261749905 Code(s): Z98.891 - HISTORY OF UTERINE SCAR FROM PREVIOUS SURGERY Status: Acute Current Visit: Yes (2) Breech presentation SNOMED Code(s): 6247107 Code(s): O32.1XX0 - MATERNAL CARE FOR BREECH PRESENTATION, UNSP Status: Acute Priority: High Current Visit: Yes - Problem List Review Problem List Initiated/Reviewed/Updated: Yes - Assessment Assessment:: 20yo s/p 1LTCS for breech presentation, POD#2 - Plan Plan:: Continue routine cares. Plan discharge home today. Reviewed discharge instructions/precautions. All questions answered.
[2021-09-22] MEDS: Acetaminophen/oxyCODONE 325-5 MG Tab PO PRN (12:32)
== END 2021-09-22 13:03 | disposition home or self-care (01) | DRG 540 ==
LOC: MW.OB 06:48 → INTOOBSV 06:48 → OBSVTOIN 09:13 → MW.OB 09:13
PROVIDERS: ADMIT Obstetrics & Gynecology Obstetrics; ATTEND Obstetrics & Gynecology Obstetrics
PROC: 10D00Z1 Extraction of Products of Conception, Low, Open Approach (ICD-10-PCS; principal; 2021-09-20)
DX: O32.1XX0 Maternal care for breech presentation, not applicable or unspecified (principal); Z37.0 Single live birth; O99.62 Diseases of the digestive system complicating childbirth; K21.9 Gastro-esophageal reflux disease without esophagitis; Z20.822 Contact with and (suspected) exposure to COVID-19; O99.824 Streptococcus B carrier state complicating childbirth; O99.214 Obesity complicating childbirth; D64.9 Anemia, unspecified; Z3A.39 39 weeks gestation of pregnancy
CPT/HCPCS: 36415; 59025; 76815; 76815-26; 85014; 85018; 85027; 86592; 86850; 86900; 86901; A9270-GY; J0290; J1790; J1885; J2270; J2370; J2405; J2590; J2795; J3010; J3105; J3490; J7120; U0002

== ENCOUNTER 2023-09-24 15:26 | Emergency (ER) | payer BC ==
[2023-09-24 15:54] LABS: BILIRUBIN,URINE NEGATIVE (NEGATIVE); GLUCOSE,URINE NEGATIVE (NEGATIVE); KETONES,URINE NEGATIVE (NEGATIVE); LEUKOCYTE ESTERASE,URINE MODERATE (NEGATIVE); NITRITE,URINE POSITIVE (NEGATIVE); OCCULT BLOOD,URINE LARGE (NEGATIVE); PH,URINE 5.5 (5.0-8.0); PROTEIN,URINE NEGATIVE (NEGATIVE); UROBILINOGEN,URINE 0.2 EU/dL (<2.0)
[2023-09-24 16:02] LABS: APPEARANCE,URINE CLOUDY; COLOR,URINE DARK YELLOW
[2023-09-24 16:03] LABS: AMORPHOUS SEDIMENT,URINE MODERATE (NEGATIVE); BACTERIA,URINE 3+ (NEGATIVE); EPITHELIAL CELLS,URINE MODERATE (NONE-FEW); MUCUS,URINE MODERATE (NONE-MOD); WBC,URINE TO NUMEROUS TO COUNT (0-5/HPF)
[2023-09-24] MEDS ORDERED: Sodium Chloride 0.9% 1,000 ML IV ONE (16:19)
[2023-09-24] MEDS ORDERED: Ondansetron 4 MG/2 ML SDV IVPUSH ONE (16:19)
[2023-09-24 16:34] LABS: BASOPHILS ABSOLUTE AUTO 0.02 K/uL (0.00-0.20); BASOPHILS PERCENT AUTO 0.2 % (0.0-1.0); EOSINOPHILS ABSOLUTE AUTO 0.08 K/uL (0.00-0.45); EOSINOPHILS PERCENT AUTO 0.7 % (0.0-6.0); HEMATOCRIT 33.8 % (37.0-47.0); HEMOGLOBIN 12.4 g/dL (12.0-16.0); IMMATURE GRAN ABSOLUTE AUTO 0.04 K/uL (0.00-0.05); IMMATURE GRAN PERCENT AUTO 0.4 % (0.0-0.4); LYMPHOCYTES ABSOLUTE AUTO 2.27 K/uL (1.00-4.80); LYMPHOCYTES PERCENT AUTO 20.6 % (24.0-44.0); MEAN CORPUSCULAR HEMOGLOBIN 30.2 pg (28.0-32.0); MEAN CORPUSCULAR HGB CONC 36.7 g/dL (32.0-36.0); MEAN CORPUSCULAR VOLUME 82.2 fL (83.0-99.0); MONOCYTES ABSOLUTE AUTO 0.54 K/uL (0.00-0.80); MONOCYTES PERCENT AUTO 4.9 % (0.0-8.0); NEUTROPHILS ABSOLUTE AUTO 8.08 K/uL (1.80-7.70); NEUTROPHILS PERCENT AUTO 73.2 % (41.0-71.0); PLATELET COUNT,PLT 210 K/uL (150-400); RED BLOOD CELL COUNT 4.11 M/uL (4.10-5.30); WHITE BLOOD CELL COUNT,WBC 11.03 K/uL (3.9-11.3)
[2023-09-24] MEDS ORDERED: cefTRIAXone 1 GM in Sodium Chloride 0.9% 50 ML IV ONE (17:07)
[2023-09-24 17:38] LABS: A/G RATIO 1.3 (0.9-1.6); BILIRUBIN TOTAL 0.5 mg/dL (0.2-1.0); CALCIUM 9.2 mg/dL (8.5-10.1); CARBON DIOXIDE,CO2 24.4 mmol/L (21.0-32.0); CREATININE 0.7 mg/dL (0.6-1.0); EST CRCL DRUG DOSING (CG) 107.93 mL/min; POTASSIUM,K 3.6 mmol/L (3.5-5.1); PROTEIN TOTAL,TP 7.2 g/dL (6.4-8.2)
[2023-09-24 19:49] LABS: CORONAVIRUS COVID-19 NAA NEGATIVE (NEGATIVE); INFLUENZA A NAA NEGATIVE (NEGATIVE); INFLUENZA B NAA NEGATIVE (NEGATIVE)
== END 2023-09-24 19:20 | disposition home or self-care (01) ==
LOC: MW.ED 15:26
DX: O23.41 Unspecified infection of urinary tract in pregnancy, first trimester (principal); Z3A.01 Less than 8 weeks gestation of pregnancy; E66.9 Obesity, unspecified; Z68.35 Body mass index [BMI] 35.0-35.9, adult; Z86.16 Personal history of COVID-19; Z20.822 Contact with and (suspected) exposure to COVID-19
CPT/HCPCS: 0240U; 36415; 76801; 80053; 81001; 84702; 85025; 87086; 87088; 87186; 96365; 96375; 99284; J0696; J2405; J3490; J7030

== ENCOUNTER 2023-10-09 23:23 | Emergency (ER) | payer BC ==
[2023-10-09] MEDS ORDERED: Lidocaine 1% 5 ML VIAL INJECT ONE (23:39)
== END 2023-10-10 00:25 | disposition home or self-care (01) ==
LOC: MW.ED 23:23
DX: O9A.219 Injury, poisoning and certain other consequences of external causes complicating pregnancy, unspecified trimester (principal); S62.617A Displaced fracture of proximal phalanx of left little finger, initial encounter for closed fracture; Z3A.00 Weeks of gestation of pregnancy not specified; X58.XXXA Exposure to other specified factors, initial encounter
CPT/HCPCS: 26725; 73140-26-F4; 73140-F4; 99283-25; J3490